=== PATIENT | male | born 1965 | race Caucasian/White ===

== ENCOUNTER → 2020-09-22 | Outpatient (CLI) | payer BC | LOC: HEART 5 06-16 09:00 | DX: I08.0 Rheumatic disorders of both mitral and aortic valves (principal) | CPT/HCPCS: 93306 ==

== ENCOUNTER → 2021-09-13 | Outpatient (CLI) | payer BC ==
[~2021-09-13] VITALS: Ht 165.1 cm; Wt 90.7 kg
== END ==
LOC: EROP 10:59
DX: U07.1 COVID-19 (principal); Z23 Encounter for immunization
CPT/HCPCS: 96365

== ENCOUNTER → 2022-01-12 | Outpatient (CLI) | payer BC | LOC: LAB 08:24 | DX: E05.00 Thyrotoxicosis with diffuse goiter without thyrotoxic crisis or storm (principal) | CPT/HCPCS: 36415; 83520; 84439; 84443; 84481 ==